=== PATIENT | female | born 1990 | race Caucasian/White ===

== ENCOUNTER 2024-07-27 14:48 | Emergency (ER) | payer BC ==
--- NOTE | 2024-07-27 16:16 | RAD REPORT ---
EXAM: CT brain without contrast HISTORY: Headache COMPARISON: 2016 TECHNIQUE: Multiple contiguous axial images were obtained and a CT of the brain without contrast.. Sagittal and coronal reconstruction performed. Automated exposure control, adjustment of the mA and/or kV according to patient size, and/or iterative reconstruction. Unless otherwise specified, incidental f indings do not require dedicated imaging follow-u FINDINGS: An intracranial bleed is not seen Ventricles are normal caliber No extra-axial fluid collection noted No significant hypodensity within the brain No fluid within the visualized sinuses or mastoids noted. IMPRESSION: No acute intracranial abnormality noted. If the patient's symptoms persist MRI of the brain would be recommended.
[2024-07-27 16:36] LABS: Absolute Basophils 0.1 K/uL (0-0.5); Absolute Eosinophils 0.1 K/uL (0-0.5); Absolute Lymphocytes (CBC) 1.9 K/uL (0.7-4.9); Absolute Monocytes 0.5 K/uL (0.1-1.3); Absolute Neutrophil 11.6 K/uL (1.8-8.0); Basophils % 0.4 % (0-1.3); Eosinophils % 0.8 % (0-4.4); Hematocrit 35.4 % (36.0-45.0); Hemoglobin 10.9 g/dL (12.0-15.0); Lymphocytes % 13.6 % (15.3-44.8); MCH 26.7 pg (27.0-35.0); MCHC 30.8 g/dL (32.0-36.0); MCV 86.8 fL (80-100); MPV 8.4 fL (7.6-11.3); Monocytes % 3.8 % (3.3-12.3); Neutrophils % 81.4 % (41.7-73.7); Platelets 553 thou/uL (152-406); RBC Red Blood Cell Count 4.08 M/uL (3.86-4.86); Red Cell Distribution Width 17.5 % (12.1-15.2)
[2024-07-27 16:38] LABS: PT Prothrombin Time 12.4 SECONDS (9.4-12.5); Protime INR 1.11
[2024-07-27 16:55] LABS: ALT/SGPT 27 U/L (13-56); AST/SGOT 18 U/L (15-37); Albumin 3.8 g/dL (3.4-5.0); Alkaline Phosphatase 83 U/L (45-117); Anion Gap 8.6 mEq/L (5.0-15.0); BUN Blood Urea Nitrogen 7 mg/dL (7-18); Bicarbonate 26 mEq/L (21-32); Bilirubin Total 0.3 mg/dL (0.2-1.0); Globulin 3.8 g/dL (2.3-3.5); Glomerular Filtration Rate 117 ml/min (=/>90); Glucose Level 95 mg/dL (74-106); Magnesium 2.1 mg/dL (1.6-2.4); NT PRO-BNP 101 pg/mL (<125); Potassium 3.6 mEq/L (3.5-5.1); Protein, Total 7.6 g/dL (6.4-8.2); Sodium Level 139 mEq/L (136-145); Troponin High Sensitivity 4.6 pg/mL (<58.9)
[2024-07-27 16:57] LABS: Bilirubin Direct < 0.2 mg/dL (0-0.2); Bilirubin Indirect, Calculated 0.1 mg/dL (0.2-0.8)
--- NOTE | 2024-07-27 17:11 | EDPHYS ---
Physician Documentation [facility] Name: Sherley Delgado Age: 34 yrs Sex: Female : 1990 Arrival Date: 07/27/2024 Time: 14:48 Bed 8 Private MD: ED Physician Andrew Marcos HPI: 07/27 17:06 This 34 yrs old Female presents to ER via Ambulatory with complaints of High Blood sp3 Pressure, Dizziness. 17:06 34-year-old female with history of asthma presents to the ED with chief complaint high sp3 blood pressure and dizziness with mild headache. She denies any prior history of hypertension, any other medical problems any recreational or other drug/medicine use, neck pain, chest pain, shortness breath, abdominal pain, nausea, vomit, diarrhea, rash, bleeding, or any other signs or symptoms on ROS at this time.. Historical: - Allergies: 15:18 No Known Allergies; cm10 - Home Meds: 15:18 None [Active]; cm10 - PMHx: 15:18 Asthma; cm10 - PSHx: 15:18 None; cm10 - Immunization history:: Adult Immunizations unknown. - Infectious Disease History:: Denies. - Social history:: Smoking status: Patient reports the use of cigarette tobacco products, denies chronic smoking, but will smoke occasionally. ROS: 17:08 Constitutional: Negative for fever, chills, and weight loss, Eyes: Negative for injury, sp3 pain, redness, and discharge, ENT: Negative for injury, pain, and discharge, Neck: Negative for injury, pain, and swelling, Cardiovascular: Negative for chest pain, palpitations, and edema, Respiratory: Negative for shortness of breath, cough, wheezing, and pleuritic chest pain, Abdomen/GI: Negative for abdominal pain, nausea, vomiting, diarrhea, and constipation, Back: Negative for injury and pain, MS/Extremity: Negative for injury and deformity, Skin: Negative for injury, rash, and discoloration, Psych: Negative for depression, anxiety, suicide ideation, homicidal ideation, and hallucinations, Allergy/Immunology: Negative for hives, rash, and allergies, Endocrine: Negative for neck swelling, polydipsia, polyuria, polyphagia, and marked weight changes, Hematologic/Lymphatic: Negative for swollen nodes, abnormal bleeding, and unusual bruising, 17:08 All other systems are negative, Exam: 17:08 Constitutional: This is a well developed, well nourished patient who is awake, alert, sp3 and in no acute distress. Head/Face: Normocephalic, atraumatic. Eyes: Pupils equal round and reactive to light, extra-ocular motions intact. Lids and lashes normal. Conjunctiva and sclera are non-icteric and not injected. Cornea within normal limits. Periorbital areas with no swelling, redness, or edema. ENT: Nares patent. No nasal discharge, no septal abnormalities noted. External auditory canals are clear. Oropharynx with no redness, swelling, or masses, exudates, or evidence of obstruction, uvula midline. Mucous membranes moist. Neck: Trachea midline, no thyromegaly or masses palpated, and no cervical lymphadenopathy. Supple, full range of motion without nuchal rigidity, or vertebral point tenderness. No Meningismus. Chest/axilla: Normal chest wall appearance and motion. Nontender with no deformity. No lesions are appreciated. Cardiovascular: Regular rate and rhythm with a normal S1 and S2. No gallops, murmurs, or rubs. Normal PMI, no JVD. No pulse deficits. Respiratory: Lungs have equal breath sounds bilaterally, clear to auscultation and percussion. No rales, rhonchi or wheezes noted. No increased work of breathing, no retractions or nasal flaring. Abdomen/GI: Soft, non-tender, with normal bowel sounds. No distension or tympany. No guarding or rebound. No evidence of tenderness throughout. Back: No spinal tenderness. No costovertebral tenderness. Full range of motion. Skin: Warm, dry with normal turgor. Normal color with no rashes, no lesions, and no evidence of cellulitis. MS/ Extremity: Pulses equal, no cyanosis. Neurovascular intact. Full, normal range of motion. Neuro: Awake and alert, GCS 15, oriented to person, place, time, and situation. Cranial nerves II-XII grossly intact. Motor strength 5/5 in all extremities. Sensory grossly intact. Cerebellar exam normal. Normal gait. Psych: Awake, alert, with orientation to person, place and time. Behavior, mood, and affect are within normal limits. 17:08 ECG was reviewed by the Attending Physician. EKG demonstrates normal sinus rhythm at 65 bpm with normal intervals, normal QRS, normal axis, normal ST's ST segments without evidence of acute ischemia. Vital Signs: 15:15 BP 185 / 101; Pulse 71; Resp 16; Temp 97.9(O); Pulse Ox 100% on R/A; Weight 86.18 kg cm10 (R); Height 5 ft. 6 in. ; Pain 4/10; 16:40 BP 151 / 87; Pulse 68; Resp 18; Pulse Ox 100% ; jb4 17:33 BP 151 / 100; Pulse 78; Resp 18; Pulse Ox 100% on R/A; mb9 15:15 Body Mass Index 30.67 (86.18 kg, 167.64 cm) cm10 15:15 Pain Scale: Adult cm10 MDM: 15:24 Medical Screening Exam initiated sp3 17:08 Data reviewed: vital signs, nurses notes, lab test result(s), EKG, radiologic studies. sp3 ED course: 34-year-old female with hypertensive urgency. Blood pressure self resolved patient is having no symptoms whatsoever currently. CT scan of the head was negative, EKG was normal and laboratory values demonstrate no renal or cardiac insult. We will safely discharge patient home at this time. Clinically we have ruled out hypertensive emergency, cardiac or renal insult, intracranial pathology or any other critical pathology at this time. I have urged patient to follow-up with PCP for recheck of high blood pressure and any further management.. 07/27 15:24 Order name: Basic Metabolic Panel; Complete Time: 16:59 3 07/27 15:24 Order name: CBC with Diff; Complete Time: 16:59 3 07/27 15:24 Order name: LFT's; Complete Time: 16:59 3 07/27 15:24 Order name: Magnesium; Complete Time: 16:59 3 07/27 15:24 Order name: NT PRO-BNP; Complete Time: 16:59 3 07/27 15:24 Order name: PT-INR; Complete Time: 16:59 3 07/27 15:24 Order name: Troponin HS; Complete Time: 16:59 3 07/27 15:24 Order name: XRAY Chest (1 view) 3 07/27 15:24 Order name: CT Head Brain wo Cont; Complete Time: 16:59 3 07/27 15:24 Order name: EKG; Complete Time: 15:24 sp3 07/27 15:24 Order name: Cardiac monitoring; Complete Time: 16:40 sp3 07/27 15:24 Order name: EKG - Nurse/Tech; Complete Time: 16:40 sp3 07/27 15:24 Order name: IV Saline Lock; Complete Time: 16:40 sp3 07/27 15:24 Order name: Labs collected and sent; Complete Time: 16:40 sp3 07/27 15:24 Order name: O2 Sat Monitoring; Complete Time: 16:40 sp3 Administered Medications: 16:40 Not Given (Physician Discretion; B/p lowered to 151/87 on its own. notified): jb4 [id number] mg IV at calculated rate once Disposition Summary: 07/27/24 17:10 Discharge Ordered Notes: Location: Home sp3 Condition: Stable sp3 Diagnosis - Hypertensive urgency, resolved sp3 Followup: sp3 - With: Private Physician - When: Upon discharge from the Emergency Department - Reason: Continuance of care Discharge Instructions: - Discharge Summary Sheet sp3 - Preventing Hypertension sp3 Forms: - Medication Reconciliation Form sp3 - Antibiotic Education sp3 - Prescription Opioid Use sp3 - Patient Portal Instructions sp3 - Leadership Thank You Letter sp3 Signatures: Dispatcher [employer] Andrew Eller MD MD sp3 Fang Pederson RN RN cm10 Alex Ocampo RN jb4
--- NOTE | 2024-07-27 17:11 | ER ---
Nurse's Notes [facility] Name: Sherley Delgado Age: 34 yrs Sex: Female : 1990 Arrival Date: 07/27/2024 Time: 14:48 Bed 8 Private MD: Diagnosis: Hypertensive urgency, resolved Presentation: 07/27 15:15 Chief complaint: Patient states: Sent to the ER by [facility] urgent care due to her BP cm10 being elevated. Pt states that she went due to having dizziness onset at 1130. Pt states that she feels like the room is spinning. Pt reports that her BP was 165 systolic at urgent care. Coronavirus screen: Client denies travel out of the [place] in the last 14 days. Ebola Screen: Patient denies travel to an Ebola-affected area in the 21 days before illness onset. No symptoms or risks identified at this time. Initial Sepsis Screen: Does the patient meet any 2 criteria? No. Patient's initial sepsis screen is negative. Does the patient have a suspected source of infection? No. Patient's initial sepsis screen is negative. Risk Assessment: Do you want to hurt yourself or someone else? Patient reports no desire to harm self or others. Onset of symptoms was July 27, 2024. 15:15 Method Of Arrival: Ambulatory cm10 15:15 Acuity: ANJALI 3 cm10 Triage Assessment: 15:18 General: Appears in no apparent distress. uncomfortable, Behavior is calm, cooperative. cm10 Neuro: No deficits noted. Level of Consciousness is awake, alert, obeys commands, Oriented to person, place, time, situation, Appropriate for age. Neuro: Moves all extremities. Gait is steady, Reports dizziness, since 1130. Respiratory: No deficits noted. Airway is patent Respiratory effort is even, unlabored, Respiratory pattern is regular, symmetrical. Historical: - Allergies: 15:18 No Known Allergies; cm10 - Home Meds: 15:18 None [Active]; cm10 - PMHx: 15:18 Asthma; cm10 - PSHx: 15:18 None; cm10 - Immunization history:: Adult Immunizations unknown. - Infectious Disease History:: Denies. - Social history:: Smoking status: Patient reports the use of cigarette tobacco products, denies chronic smoking, but will smoke occasionally. Screenin:40 [facility] ED Fall Risk Assessment (Adult) History of falling in the last 3 months, jb4 including since admission No falls in past 3 months (0 pts) Confusion or Disorientation No (0 pts) Intoxicated or Sedated No (0 pts) Impaired Gait No (0 pts) Mobility Assist Device Used No (0 pt) Altered Elimination No (0 pt) Score/Fall Risk Level 0 - 2 = Low Risk Oriented to surroundings, Maintained a safe environment. Abuse screen: Denies threats or abuse. Nutritional screening: No deficits noted. Tuberculosis screening: No symptoms or risk factors identified. Assessment: 16:40 General: Appears in no apparent distress. comfortable, Behavior is calm, cooperative, jb4 appropriate for age. Pain: Denies pain. Neuro: Level of Consciousness is awake, alert, obeys commands, Oriented to person, place, time, situation. Cardiovascular: Patient's skin is warm and dry. Respiratory: Airway is patent Respiratory effort is even, unlabored, Respiratory pattern is regular, symmetrical. GI: No signs and/or symptoms were reported involving the gastrointestinal system. : No signs and/or symptoms were reported regarding the genitourinary system. EENT: No signs and/or symptoms were reported regarding the EENT system. Derm: Skin is intact, Skin is pink, warm \T\ dry. Musculoskeletal: Circulation, motion, and sensation intact. Range of motion: intact in all extremities. 17:33 Reassessment: Patient and/or family updated on plan of care and expected duration. Pain mb9 level reassessed. Patient is alert, oriented x 3, equal unlabored respirations, skin warm/dry/pink. Patient states feeling better. Patient states symptoms have improved. Vital Signs: 15:15 BP 185 / 101; Pulse 71; Resp 16; Temp 97.9(O); Pulse Ox 100% on R/A; Weight 86.18 kg cm10 (R); Height 5 ft. 6 in. ; Pain 4/10; 16:40 BP 151 / 87; Pulse 68; Resp 18; Pulse Ox 100% ; jb4 17:33 BP 151 / 100; Pulse 78; Resp 18; Pulse Ox 100% on R/A; mb9 15:15 Body Mass Index 30.67 (86.18 kg, 167.64 cm) cm10 15:15 Pain Scale: Adult cm10 ED Course: 14:49 Patient arrived in ED. mr 14:56 Andrew Marcos MD is Attending Physician. sp3 15:18 Triage completed. cm10 15:54 CT Head Brain wo Cont In Process Unspecified. EDMS 16:24 XRAY Chest (1 view) In Process Unspecified. EDMS 16:28 Initial lab(s) drawn, by id, sent to lab. Inserted saline lock: 18 gauge in right jb4 antecubital area, using aseptic technique. Blood collected. 16:39 EKG done, by ED staff, reviewed by Andrew Marcos MD. jb4 16:40 Basic Metabolic Panel Sent. jb4 16:40 LFT's Sent. jb4 16:40 Magnesium Sent. jb4 16:40 NT PRO-BNP Sent. jb4 16:40 Troponin HS Sent. jb4 16:40 Patient has correct armband on for positive identification. Bed in low position. Call jb4 light in reach. Side rails up X 1. Provided Education on: Plan of care. 17:05 Yasmeen Singh, RN is Primary Nurse. mb9 17:05 No provider procedures requiring assistance completed. mb9 17:10 Arm band placed on. mb9 17:33 IV discontinued, intact, bleeding controlled, No redness/swelling at site. Pressure mb9 dressing applied. Administered Medications: 16:40 Not Given (Physician Discretion; B/p lowered to 151/87 on its own. MD notified): jb4 [id number] mg IV at calculated rate once Medication: 16:40 VIS not applicable for this client. jb4 Outcome: 17:10 Discharge ordered by . sp3 17:33 Discharged to home ambulatory, mb9 17:33 Condition: stable 17:33 Discharge instructions given to patient, Instructed on discharge instructions, follow up and referral plans. Demonstrated understanding of instructions, follow-up care, 17:34 Patient left the ED. mb9 Signatures: Dispatcher [employer] EDRI EdmondYasmeen bose, Reg Reg TerrenceAlex, RN RN jb4 Andrew Marcos MD MD sp3 Yasmeen Singh, RN RN mb9 Fang Pederson RN RN cm10
[2024-07-27 17:37] VITALS: TEMP 97.9; O2SAT 100
[2024-07-27 17:40] VITALS: BP 151/100
--- NOTE | 2024-07-29 14:55 | EKG ---
Test Date: 2024-07-27 Test Time: 16:34:30 Dredge Hand: BINH MEASUREMENT RESULTS: Intervals: Rate: 65 MS: 144 QRSD: 98 QT: 436 QTc: 453 [place]: P: 46 MS: 144 QRS: 31 T: 15 INTERPRETIVE STATEMENTS: Normal sinus rhythm Nonspecific T wave abnormality Abnormal ECG No previous ECG available for comparison Electronically Signed On 07-29-24 14:47:57 CDT by Thomas Lux
== END 2024-07-27 17:34 | disposition home or self-care (01) ==
LOC: ER 14:48
DX: I16.0 Hypertensive urgency (principal); F17.210 Nicotine dependence, cigarettes, uncomplicated
CPT/HCPCS: 36415; 70450; 71045; 80048; 80076; 83735; 83880; 84484; 85025; 85610; 93005; 99284